=== PATIENT | female | born 1995 | race African-American/Black ===

== ENCOUNTER 2023-09-19 01:22 | Emergency (ER) | payer OTHER, MEDICAID ==
[~2023-09-19] VITALS: Ht 170.2 cm; Wt 72.6 kg
[2023-09-19] MEDS ORDERED: FURO20TA4 PO (01:41)
[2023-09-19] MEDS ORDERED: ARIP10TA9 PO (01:41)
[2023-09-19 02:11] LABS: BASOPHILS # (AUTO) 0.1 K/UL (0.0-0.2); BASOPHILS % (AUTO) 0.5 % (0.0-2.0); EOSINOPHILS # (AUTO) 0.5 K/uL (0.0-0.7); EOSINOPHILS % (AUTO) 4.6 % (0.0-7.0); HEMATOCRIT 35.3 % (31.2-41.9); HEMOGLOBIN 12.5 g/dL (10.9-14.3); LYMPHOCYTES # (AUTO) 3.9 K/uL (0.8-4.8); LYMPHOCYTES % (AUTO) 38.8 % (20.5-51.5); MEAN CORPUSCULAR HEMOGLOBIN 32.3 uug (24.7-32.8); MEAN CORPUSCULAR HGB CONC 35 g/dL (32.3-35.6); MEAN CORPUSCULAR VOLUME 91.5 fL (75.5-95.3); MONOCYTES # (AUTO) 0.6 K/uL (0.1-1.30); MONOCYTES % (AUTO) 5.4 % (0.0-11.0); NEUTROPHILS # (AUTO) 5.1 K/uL (1.8-8.9); NEUTROPHILS % (AUTO) 50.7 % (38.5-71.5); PLATELET COUNT (AUTO) 332 K/uL (179-408); RED BLOOD CELL COUNT(AUTO) 3.86 MIL/uL (3.63-4.92); RED CELL DISTRIBUTION WIDTH 12.9 % (12.3-17.7); WHITE BLOOD COUNT (AUTO) 10.1 K/uL (3.8-11.8)
[2023-09-19 02:22] LABS: DIFFERENTIAL COMMENT 1
[2023-09-19 02:23] LABS: CALCIUM 8.1 mg/dL (8.5-10.1); CARBON DIOXIDE 28 mmol/L (21-32); CHLORIDE 106 mmol/L (98-107); CREATININE 0.9 mg/dL (0.6-1.3); GLUCOSE 97 mg/dL (74-106); POTASSIUM 3.3 mmol/L (3.5-5.1); SODIUM SERUM 143 mmol/L (136-145); UREA NITROGEN, BLOOD 7 mg/dL (7-18)
[2023-09-19 02:32] LABS: ALANINE AMINOTRANSFERASE 23 U/L (14-59); ALBUMIN 3.2 g/dL (3.4-5.0); ALKALINE PHOSPHATASE 52 U/L (50-136); ASPARTATE AMINOTRANSFERASE 9 U/L (15-37); BILIRUBIN,DIRECT 0.1 mg/dL (0.0-0.2); BILIRUBIN,TOTAL 0.5 mg/dL (0.2-1.0); TOTAL PROTEIN, SERUM 6.8 g/dL (6.4-8.2)
[2023-09-19 02:33] LABS: ACETAMINOPHEN < 2.0 ug/mL (10-30)
[2023-09-19 03:02] LABS: *BILIRUBIN,URIN NEGATIVE (NEGATIVE); *BLOOD, URINE NEGATIVE (NEGATIVE); *CLARITY,URINE CLEAR (CLEAR); *COLOR,URINE YELLOW (YELLOW); *KETONES,URINE NEGATIVE (NEGATIVE); *PROTEIN,URINE NEGATIVE (NEGATIVE); LEUKOCYTE ESTERASE ,URINE NEGATIVE (NEGATIVE); NITRITE, URINE NEGATIVE (NEGATIVE); PH,URINE 6.5 (5.0-8.0); UGLUCOSE NEGATIVE (NEGATIVE)
[2023-09-19 03:39] LABS: *AMPHETAMINE, URINE NEGATIVE (NEGATIVE); *BARBITURATE, URINE NEGATIVE (NEGATIVE); *BENZODIAZEPINE, URINE NEGATIVE (NEGATIVE); *CANNABINOID, URINE NEGATIVE (NEGATIVE); *COCCAINE, URINE NEGATIVE (NEGATIVE); *OPIATE, URINE NEGATIVE (NEGATIVE); *PHENCYCLIDINE SCREEN,URINE NEGATIVE (NEGATIVE)
[2023-09-19 03:41] LABS: ETHANOL < 3 MG/DL (0-10)
[2023-09-19 03:42] LABS: FENTANYL, URINE NEGATIVE (NEGATIVE)
[2023-09-19 04:05] LABS: *URINE HCG, QUAL NEGATIVE (NEGATIVE)
[2023-09-19 06:32] VITALS: BP 100/72; TEMP 98.1; O2SAT 97
== END 2023-09-19 06:33 | disposition home or self-care (01) ==
LOC: ER 01:30
DX: R07.89 Other chest pain (principal); F20.9 Schizophrenia, unspecified; Z79.899 Other long term (current) drug therapy
CPT/HCPCS: 36415; 84484; 84703; 85025; 93005; A4606; A4663; G0480

== ENCOUNTER 2023-11-03 07:31 | Emergency (ER) | payer BC, OTHER ==
[~2023-11-03] VITALS: Ht 172.7 cm; Wt 83.9 kg
[~2023-11-03 07:31] MED LIST: ARIP10TA9 PO; FURO20TA4 PO
[2023-11-03 09:14] LABS: *BILIRUBIN,URIN NEGATIVE (NEGATIVE); *BLOOD, URINE NEGATIVE (NEGATIVE); *CLARITY,URINE CLEAR (CLEAR); *COLOR,URINE YELLOW (YELLOW); *KETONES,URINE NEGATIVE (NEGATIVE); *PROTEIN,URINE NEGATIVE (NEGATIVE); *UROBILINOGEN,URINE 0.2 E.U./dl (NORMAL); LEUKOCYTE ESTERASE ,URINE NEGATIVE (NEGATIVE); NITRITE, URINE NEGATIVE (NEGATIVE); UGLUCOSE NEGATIVE (NEGATIVE)
[2023-11-03 09:16] LABS: *URINE HCG, QUAL NEGATIVE (NEGATIVE)
[2023-11-03] MEDS ORDERED: ACETAMINOPHEN 500 MG TABLET ONE (10:25)
[2023-11-03] MEDS: ACETAMINOPHEN 500 MG TABLET PO ONE (10:26)
[2023-11-03 10:38] VITALS: BP 138/78; TEMP 97; O2SAT 98
== END 2023-11-03 10:39 | disposition home or self-care (01) ==
LOC: ER 07:46
DX: S30.1XXA Contusion of abdominal wall, initial encounter (principal); F31.9 Bipolar disorder, unspecified; R10.2 Pelvic and perineal pain; Z79.899 Other long term (current) drug therapy; Z60.2 Problems related to living alone; W18.39XA Other fall on same level, initial encounter; Y93.89 Activity, other specified; Y92.89 Other specified places as the place of occurrence of the external cause; Y99.8 Other external cause status
CPT/HCPCS: 72170; 76856; 84703; A4606; A4663; A9150